=== PATIENT | male | born 1965 | race African-American/Black ===

== ENCOUNTER 2017-05-04 23:13 | Emergency (ER) | payer MEDICAID ==
[~2017-05-04] VITALS: Ht 185.4 cm; Wt 116.0 kg
[2017-05-05] MEDS ORDERED: KETOROLAC 30MG/ML VIAL IM ONE (00:30)
[2017-05-05 02:27] VITALS: BP 155/98
== END 2017-05-05 02:31 | disposition home or self-care (01) ==
LOC: ER 23:13
DX: S13.4XXA Sprain of ligaments of cervical spine, initial encounter (principal); M79.641 Pain in right hand; M25.511 Pain in right shoulder; I10 Essential (primary) hypertension; F20.9 Schizophrenia, unspecified; F17.200 Nicotine dependence, unspecified, uncomplicated; V43.62XA Car passenger injured in collision with other type car in traffic accident, initial encounter; Y93.89 Activity, other specified; Y92.89 Other specified places as the place of occurrence of the external cause; Y99.8 Other external cause status
CPT/HCPCS: 72125; 73030; 73130; 96372; 99284; J1885; Z7610